=== PATIENT | female | born 1995 | race Two or more races ===

== ENCOUNTER 2016-09-02 21:05 | Emergency (ER) | payer MEDICAID ==
[2016-09-02 22:42] LABS: SPECIFIC GRAVITY 1.025 (1.001-1.030); URINE BILIRUBIN NEGATIVE (NEGATIVE); URINE BLOOD NEGATIVE (NEGATIVE); URINE GLUCOSE (UA) NEGATIVE (NEGATIVE); URINE LEUKOCYTE ESTERASE NEGATIVE (NEGATIVE); URINE NITRITE NEGATIVE (NEGATIVE); URINE PROTEIN NEGATIVE (NEGATIVE); URINE UROBILINOGEN NORMAL (0-1 mg/dl)
[2016-09-02 22:43] LABS: URINE APPEARANCE HAZY; URINE COLOR YELLOW
[2016-09-02 23:09] LABS: ABSOLUTE NEUTROPHIL COUNT 4.2 K/mm3 (1.8-7.7); BASO % 0.6 % (0.2-1.0); EOS # 0.5 (0.0-0.5); EOS % 6.9 % (0.9-2.9); HEMATOCRIT 36.7 % (37.0-47.0); IMM NEUT% 0.1 % (0-1); LYMPH # 1.7 (1.0-4.8); LYMPH % 23.1 % (15-45); MEAN CELL VOLUME 86.6 fl (81.0-99.0); MEAN CORPUSCULAR HEMOGLOBIN 28.3 pg (27.0-31.0); MEAN CORPUSCULAR HGB CONC 32.7 g/dl (33.0-37.0); MEAN PLATELET VOLUME 12.3 fl (7.4-10.4); MONO # 0.8 (0.0-0.8); NEUT % 58.3 % (43-75); PLATELET COUNT 202 K/mm3 (130-400); RED CELL DISTRIBUTION WIDTH 13.4 % (11.5-14.5)
--- NOTE | 2016-09-03 06:57 | US ---
EXAMINATION: Obstetrical ultrasound less than 14 weeks. CLINICAL INDICATION:Bleeding. Clinical estimated gestational age: 6 weeks 2 days. : 3 , para 1 Technique:Transabdominal and transvaginal sonograms performed. Findings: There is no discernible gestational sac, pole, yolk sac or cardiac activity identified. Small flattened fluid collection is noted within the endometrial canal. It is irregularly shaped. It measures 0.6 x 0.1 x 0.3 cm. No increased vascularity is seen. Nabothian cysts are noted. Maternal adnexa: Right ovary 2.4 x 1.6 x 1.2 centimeters. Left ovary: 2.6 x 2.6 x 1.7 centimeters. Free fluid:Absent IMPRESSION: Currently no intrauterine gestation is identified. This finding is nonspecific. Early intrauterine gestation, missed , and ectopic cannot be excluded.. Continued clinical surveillance, serial serum beta hCGs and followup sonography if indicated should be considered. Findings were communicated by [facility] to the emergency department at: 12:35 AM 09/03/2016
[2016-09-05 15:25] LABS: CHLAMYDIA BD Negative (Negative); N.GONORRHOEAE BD Negative (Negative); SOURCE Urine (())
== END 2016-09-03 00:53 | disposition home or self-care (01) ==
LOC: ED 21:05
DX: O20.0 Threatened abortion (principal); Z3A.01 Less than 8 weeks gestation of pregnancy